=== PATIENT | female | born 1990 | race Caucasian/White ===

== ENCOUNTER 2025-01-05 15:50 | Inpatient (IN) ==
--- NOTE | 2025-01-05 16:53 | History & Physical Report ---
Date of Service January 05, 2025 Assessment & Plan (1) resulting from in vitro fertilization, antepartum: Plan: Admit to L&D, EFM/toco. Labs. History of Present Illness Chief Complaint: leaking fluid Primary Care Provider: NO PCP 34yo @ 40 0/7, started leaking fluid early this afternoon. + movement, no vaginal bleeding, some contractions IVF . Allergies Allergy/AdvReac Type Severity Reaction Status Date / Time No Known Allergies Allergy Verified 12/31/24 11:24 Home Medications Medication Instructions Recorded Confirmed Type PNV no.[id number] 1 tab PO DAILY 07/03/24 12/31/24 History [ Gummies] Patient History Medical History (Updated 01/05/25 @ 16:11 by Lily Curiel RN) Infertility, female Uterine polyp Varicella vaccination Surgical History Status post surgery uterine polypectomy Family History Denies family history of Ovarian cancer Prostate cancer Breast cancer Colorectal cancer Social History (Updated 07/03/24 @ 10:53 by Shelia Cota) Smoking Status: Never smoker Do You Dip or Chew Tobacco: No; Hx Alcohol Use: No Hx Substance Use: No Preferred Language: Uzbek Communication Ability: Effective Mail Handler Equipment Operator Required: No Beliefs That Will Affect Care: None marital status: marital status details: KENNY Camejo (31) [phone] Current Living Situation: Spouse Current Living Situation Comment: lives with spouse, dog, cat-spouse changing litter current occupational status: employed 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 Neg valsalva. Constitutional: WD/WN, vitals as above Respiratory: normal respiratory effort, lungs clear to auscultation no respiratory distress Cardiovascular: Rate/Rhythm: regular rate and regular rhythm Gastrointestinal (Abdomen): Inspection/Auscultation: abdomen normal to inspection Percussion/Palpation: abdomen soft; abdomen nontender Gravid. No s/s chorio or abruption. Skin: no rashes, warm and dry Psychiatric: A+Ox3, euthymic affect Results & Data Vital Signs (Past 12 Hours) Vital Signs Temp Pulse Resp BP 01/05/25 16:10 36.6 C 20 01/05/25 16:06 72 129/71 01/05/25 16:05 20 01/05/25 16:05 36.6 C 20 Coding Level of Care Code None Diagnoses resulting from in vitro fertilization, antepartum O09.819
[2025-01-05] MEDS ORDERED: LIDOCAINE 1% LOCAL 20 ML VIAL INFIL PRN (17:02)
[2025-01-05] MEDS ORDERED: OXYTOCIN 30 UNITS/NSS 30 UNITS/500 ML BAG IV PRN (17:02)
[2025-01-05 17:36] LABS: Hematocrit (blood only) 36.8 % (37.0-47.0); Mean Corpuscular Hemoglobin 32.6 pg (25.0-34.0); Mean Corpuscular Hgb Conc 35.3 g/dL (32.0-36.0); Mean Corpuscular Volume 92.2 fL (80.0-100.0); Mean Platelet Volume 12.1 fL (9.4-12.4); Platelet Count 174 K/uL (130-400); RDW Coefficient of Variation 12.2 % (11.5-14.5); RDW Standard Deviation 41.2 fL (36.4-46.3); Red Blood Count 3.99 M/uL (4.20-5.40); White Blood Count 9.98 K/ul (4.8-10.8)
[2025-01-05] MEDS: LACTATED RINGER'S 1,000 ML IV PRN (20:15)
[2025-01-05] MEDS: OXYTOCIN 30 UNITS/NSS 30 UNITS/500 ML BAG IV PRN (20:16)
--- NOTE | 2025-01-05 22:16 | Labor Progress Brief Note ---
Date of Service January 05, 2025 Subjective Pitocin started. FHT Cat 1 [place] Q 2 Continue augmentation of labor. Assessment & Plan Admission and Anticipated Discharge Date Admission Date: January 05, 2025 Results & Data Vital Signs (Past 12 Hours) Vital Signs Temp Pulse Resp BP O2 Del Method 01/05/25 21:25 77 01/05/25 21:25 124/68 01/05/25 20:49 16 01/05/25 20:49 37.0 C 16 01/05/25 20:14 79 01/05/25 20:14 128/71 01/05/25 19:16 Room Air 01/05/25 19:06 18 01/05/25 19:06 37.0 C 18 01/05/25 19:06 88 01/05/25 19:06 131/74 01/05/25 16:10 36.6 C 20 01/05/25 16:06 72 129/71 01/05/25 16:05 20 01/05/25 16:05 36.6 C 20 Coding Level of Care Code None
[2025-01-05] MEDS ORDERED: ROPIVACAINE 0.5% PF 5 MG/ML 20 ML VIAL EPI PRN (23:33)
[2025-01-05] MEDS ORDERED: diphenhydrAMINE 50 MG/ML VIAL IV PRN (23:33)
[2025-01-05] MEDS ORDERED: ePHEDrine sulfate 50 MG/ML AMP IV PRN (23:33)
[2025-01-05] MEDS ORDERED: NALOXONE HCL 0.4 MG/1 ML VIAL/CARP IV PRN (23:33)
[2025-01-05] MEDS ORDERED: NALOXONE HCL 1 MG in SODIUM CHLORIDE 0.9% 1,000 ML IV PRN (23:33)
[2025-01-05] MEDS ORDERED: NALBUPHINE HCL INJ 10 MG/ML AMP IV PRN (23:33)
[2025-01-05] MEDS ORDERED: BUPIVACAINE 0.25% PF 30 ML VIAL EPI PRN (23:33)
[2025-01-05] MEDS ORDERED: fentaNYL citrate PF 100 MCG/2 ML VIAL EPI PRN (23:33)
[2025-01-05] MEDS ORDERED: SODIUM CHLORIDE 0.9% PF INJ 10 ML VIAL EPI PRN (23:33)
[2025-01-05] MEDS ORDERED: LIDOCAINE 2% MPF LOCAL 5 ML VIAL EPI PRN (23:33)
--- NOTE | 2025-01-05 23:35 | Anesthesiology Consultation ---
Date of Service January 05, 2025 Assessment & Plan (1) Encounter for pre-operative examination: Chart Review Chart Review: Patient NOT seen in Pre Admission Testing and Acceptable Risk for Labor Epidural Consults Requested none History Height/Weight Height: 5 ft 3 in Weight: 84.822 kg Allergies Allergy/AdvReac Type Severity Reaction Status Date / Time No Known Allergies Allergy Verified 12/31/24 11:24 Medications Home Medications Medication Instructions Recorded Confirmed Last Taken PNV no.[id number] 1 tab PO DAILY 07/03/24 12/31/24 01/04/25 21:00 [ Gummies] Active Medications Generic Name Dose Route Start Last Admin Trade Name Freq PRN Reason Stop Dose Admin Lactated Ringer's 1,000 mls @ 125 mls/hr 01/05/25 17:02 01/05/25 23:15 Lr IV 01/06/25 17:01 999 mls/hr .Q8H PRN Infusion L&D Protocol Protocol Oxytocin 30 units in 500 mls @ 9 mls/hr 01/05/25 17:02 01/05/25 22:46 Pitocin 30 Units/Nss IV 01/07/25 17:01 0.54 units/hr .Q24H PRN 9 mls/hr Labor Induction/Augmentation Titration Protocol 0.54 UNITS/HR Past Medical History Medical History (Updated 01/05/25 @ 23:35 by Alfredito Leblanc MD) Encounter for pre-operative examination Infertility, female Uterine polyp Varicella vaccination Exercise / Class Metabolic Activity II 4-5 Yardwork/Stairs/Walk up hill Past Family History Family History Denies family history of Ovarian cancer Prostate cancer Breast cancer Colorectal cancer Past Surgical History Surgical History Status post surgery uterine polypectomy Past Anesthesia History No Hx of Anesthesia Complications and No Family Hx of Anesthesia Complications Social History Smoking Status: Never smoker Do You Dip or Chew Tobacco: No Hx Alcohol Use: No Hx Substance Use: No Physical Exam Vital Signs Last Vital Signs Temp 37.0 C 01/05/25 22:45 Pulse 81 01/05/25 23:54 Resp 16 01/05/25 22:45 BP 123/76 01/05/25 23:54 Pulse Ox 94 01/05/25 23:51 O2 Del Method Room Air 01/05/25 19:16 Testing Laboratory Results 01/05/25 17:17
[2025-01-05] MEDS: LIDOCAINE 2%/EPINEPHRINE 1:200,000 20 ML PF ONE (23:57)
[2025-01-05] MEDS: fentaNYL citrate PF 100 MCG/2 ML VIAL ONE (23:59)
[2025-01-06] MEDS: BUPIVACAINE 0.25% PF 30 ML VIAL ONE
[2025-01-06] MEDS: fentANYL 2 MCG/ML BUPIVacaine 0.125%-NSS 100ML BAG ONE (00:02)
[2025-01-06] MEDS: SODIUM CHLORIDE 0.9% PF INJ 10 ML VIAL ONE (00:38)
[2025-01-06] MEDS ORDERED: NURSING L&D Epidural Breakthrough Pain Update ONE (03:36)
[2025-01-06] MEDS ORDERED: LIDOCAINE 2%/EPINEPHRINE 1:200,000 20 ML PF ONE (04:00)
[2025-01-06] MEDS ORDERED: ROPIVACAINE 0.5% 5 MG/ML 30 ML VIAL ONE (04:00)
--- NOTE | 2025-01-06 04:17 | Anesthesia Procedure Note ---
Date of Service January 06, 2025 Anesthesia Epidural Re-Dose Vital Signs Temp Pulse Resp BP Pulse Ox O2 Del Method 37.1 C 76 16 111/57 L 97 Room Air 01/06/25 04:05 01/06/25 04:15 01/06/25 04:05 01/06/25 04:15 01/06/25 04:12 01/05/25 19:16 Notes Pain Intensity: 5 Dilatation (cm): 6.5 Effacement (%): 100 Called by nursing to evaluate epidural as the patient is having increased pain. The epidural was re-dosed with the following medications (all medications via epidural route) after negative aspiration of the epidural catheter for CSF/HEME. 8ml of 2% LIdocaine mixed with 4ml of 0.5% ropivicaine. After Epidural Re-Dose Mental Status: alert / awake / arousable Pain: improving with treatment Airway Patency, RR, SpO2: stable & adequate BP & HR: stable & adequate
[2025-01-06] MEDS: fentANYL 2 MCG/ML BUPIVacaine 0.125%-NSS 100ML BAG EPI PRN (06:12)
[2025-01-06] MEDS: ePHEDrine sulfate 50 MG/ML AMP ONE (06:24)
--- NOTE | 2025-01-06 10:34 | Labor Progress Brief Note ---
Date of Service January 06, 2025 Subjective feeling ctx pain, just repositioned Assessment & Plan (1) resulting from in vitro fertilization, antepartum: Plan: 34 yo G1 at 40 1/7 wga w/ srom VSS Fetus cat 2 w/ variables but reassuring w/ mod variability, improvement w/ positioning Labor - pit at 19 and ant lip, continue repositioning to help GBS neg epidural in place Admission and Anticipated Discharge Date Admission Date: January 05, 2025 Physical Exam Genitourinary: SVE 9.5/100/0 by rn just now after straight cath fetus cat 2 - 140/mod/+accel/intermit variables ctx qq3-5 Results & Data Vital Signs (Past 12 Hours) Vital Signs Temp Pulse Resp BP Pulse Ox 01/06/25 10:27 69 95 01/06/25 10:22 70 97 01/06/25 10:17 70 131/76 96 01/06/25 10:12 70 95 01/06/25 10:07 79 97 01/06/25 10:02 81 128/73 97 01/06/25 09:57 76 97 01/06/25 09:52 76 97 01/06/25 09:48 77 117/67 01/06/25 09:47 71 98 01/06/25 09:42 64 98 01/06/25 09:37 73 96 01/06/25 09:33 69 121/66 01/06/25 09:32 68 93 01/06/25 09:27 61 95 01/06/25 09:22 64 96 01/06/25 09:17 97 01/06/25 09:17 67 01/06/25 09:17 64 120/68 01/06/25 09:12 68 96 01/06/25 09:07 64 97 01/06/25 09:02 63 119/69 97 01/06/25 09:00 20 01/06/25 09:00 98.8 F 20 01/06/25 08:57 85 97 01/06/25 08:52 71 94 01/06/25 08:47 97 01/06/25 08:47 76 01/06/25 08:47 71 129/74 01/06/25 08:42 71 97 01/06/25 08:37 69 96 01/06/25 08:32 73 131/73 97 01/06/25 08:27 67 97 01/06/25 08:22 79 97 01/06/25 08:17 97 01/06/25 08:17 70 01/06/25 08:17 76 128/73 01/06/25 08:12 73 96 01/06/25 08:07 76 97 01/06/25 08:03 80 134/75 01/06/25 08:02 76 129/73 97 01/06/25 07:57 75 95 01/06/25 07:52 72 96 01/06/25 07:48 77 128/72 01/06/25 07:47 82 97 01/06/25 07:42 75 95 01/06/25 07:37 80 96 01/06/25 07:33 74 130/76 01/06/25 07:32 88 98 01/06/25 07:27 80 96 01/06/25 07:22 81 97 01/06/25 07:17 85 125/75 97 01/06/25 07:04 80 97 01/06/25 07:02 97.9 F 86 20 123/71 01/06/25 06:59 78 98 01/06/25 06:54 78 98 01/06/25 06:49 98 01/06/25 06:49 85 01/06/25 06:49 81 127/72 01/06/25 06:43 84 98 01/06/25 06:38 79 99 01/06/25 06:33 96 01/06/25 06:33 82 01/06/25 06:33 80 129/73 01/06/25 06:28 84 98 01/06/25 06:23 80 98 01/06/25 06:18 85 122/75 98 01/06/25 06:13 81 99 01/06/25 06:10 16 01/06/25 06:10 98.1 F 16 01/06/25 06:08 87 93 01/06/25 06:03 75 99 01/06/25 06:02 78 130/70 01/06/25 05:58 66 98 01/06/25 05:53 77 96 01/06/25 05:48 98 01/06/25 05:48 69 01/06/25 05:48 80 126/68 01/06/25 05:42 73 94 01/06/25 05:37 73 97 01/06/25 05:32 83 112/72 98 01/06/25 05:27 76 97 01/06/25 05:22 82 96 01/06/25 05:17 76 117/75 98 01/06/25 05:12 84 97 01/06/25 05:07 78 98 01/06/25 05:03 74 103/56 L 01/06/25 05:02 68 96 01/06/25 04:57 68 97 01/06/25 04:52 70 92 01/06/25 04:48 73 97/55 L 01/06/25 04:47 73 93 01/06/25 04:42 66 92 01/06/25 04:37 72 90 01/06/25 04:32 71 103/51 L 97 01/06/25 04:27 69 97 01/06/25 04:22 76 95 01/06/25 04:17 77 95 01/06/25 04:15 76 111/57 L 01/06/25 04:13 74 106/59 L 01/06/25 04:12 74 97 01/06/25 04:11 71 103/57 L 01/06/25 04:09 68 107/59 L 01/06/25 04:07 73 113/62 95 01/06/25 04:05 98.8 F 76 16 112/61 01/06/25 04:02 69 97 01/06/25 03:57 70 96 01/06/25 03:52 97 01/06/25 03:52 71 01/06/25 03:52 70 108/60 01/06/25 03:47 77 97 01/06/25 03:42 83 97 01/06/25 03:37 97 01/06/25 03:37 73 01/06/25 03:37 73 107/60 01/06/25 03:32 80 97 01/06/25 03:27 74 97 01/06/25 03:23 87 110/53 L 01/06/25 03:22 93 H 96 01/06/25 03:17 91 H 96 01/06/25 03:12 82 97 01/06/25 03:08 93 H 130/80 01/06/25 03:07 85 97 01/06/25 03:02 71 98 01/06/25 02:57 78 97 01/06/25 02:53 75 131/75 01/06/25 02:52 77 97 01/06/25 02:47 74 98 01/06/25 02:44 16 01/06/25 02:44 99.3 F 16 01/06/25 02:42 94 H 98 01/06/25 02:37 77 97 01/06/25 02:36 77 122/71 01/06/25 02:32 73 97 01/06/25 02:27 87 96 01/06/25 02:22 69 97 01/06/25 02:21 73 116/61 01/06/25 02:17 74 95 01/06/25 02:12 79 98 01/06/25 02:07 79 114/66 97 01/06/25 02:02 76 96 01/06/25 01:57 83 96 01/06/25 01:52 97 01/06/25 01:52 80 01/06/25 01:52 77 124/72 01/06/25 01:46 74 96 01/06/25 01:41 77 95 01/06/25 01:36 73 118/65 96 01/06/25 01:31 71 95 01/06/25 01:26 71 96 01/06/25 01:21 96 01/06/25 01:21 73 01/06/25 01:21 77 123/68 01/06/25 01:16 71 97 01/06/25 01:11 77 98 01/06/25 01:07 78 127/65 01/06/25 01:06 90 98 01/06/25 01:01 79 95 01/06/25 00:56 77 97 01/06/25 00:51 81 98 01/06/25 00:49 75 121/66 01/06/25 00:46 75 97 01/06/25 00:44 79 127/64 01/06/25 00:41 75 97 01/06/25 00:40 73 124/62 01/06/25 00:36 82 97 01/06/25 00:34 82 127/71 01/06/25 00:31 83 96 01/06/25 00:29 80 129/63 01/06/25 00:27 83 130/68 01/06/25 00:26 81 96 01/06/25 00:25 99.0 F 86 16 128/67 01/06/25 00:23 78 132/65 01/06/25 00:21 88 126/61 95 01/06/25 00:19 82 128/60 01/06/25 00:17 77 127/62 01/06/25 00:16 81 93 01/06/25 00:15 81 132/67 87 L 01/06/25 00:13 79 133/63 01/06/25 00:11 94 01/06/25 00:11 76 01/06/25 00:11 81 131/64 01/06/25 00:09 72 126/63 88 L 01/06/25 00:07 73 125/64 01/06/25 00:06 73 93 01/06/25 00:05 75 124/60 01/06/25 00:03 71 127/72 01/06/25 00:01 95 01/06/25 00:01 81 01/06/25 00:01 77 123/69 01/05/25 23:59 81 01/05/25 23:59 128/75 01/05/25 23:57 80 01/05/25 23:57 124/75 01/05/25 23:56 96 01/05/25 23:56 81 01/05/25 23:54 81 01/05/25 23:54 123/76 01/05/25 23:51 94 01/05/25 23:51 74 01/05/25 23:46 94 01/05/25 23:46 77 01/05/25 23:41 95 01/05/25 23:41 97 H 01/05/25 23:36 94 01/05/25 23:36 83 01/05/25 23:31 97 01/05/25 23:31 76 01/05/25 22:45 16 01/05/25 22:45 98.6 F 16 01/05/25 22:45 83 01/05/25 22:45 121/71 Coding Level of Care Code None Diagnoses resulting from in vitro fertilization, antepartum O09.819
--- NOTE | 2025-01-06 11:59 | Labor Progress Brief Note ---
Date of Service January 06, 2025 Subjective started pushing Assessment & Plan (1) resulting from in vitro fertilization, antepartum: Plan: 34 yo G1 at 40 1/7 wga w/ srom VSS Fetus cat 2 w/ variables but reassuring w/ mod variability, improvement b/w pushing and pushing effectively, just started. Continue pushing Admission and Anticipated Discharge Date Admission Date: January 05, 2025 Physical Exam Genitourinary: fetus cat 2 - 140/mod/intermit variables with pushing that recover after ctx ctx qq3-5 Results & Data Vital Signs (Past 12 Hours) Vital Signs Temp Pulse Resp BP Pulse Ox 01/06/25 11:52 86 97 01/06/25 11:49 97 H 131/80 01/06/25 11:47 73 98 01/06/25 11:42 70 98 01/06/25 11:37 73 99 01/06/25 11:34 83 125/77 01/06/25 11:32 72 99 01/06/25 11:27 66 98 01/06/25 11:22 63 98 01/06/25 11:19 65 139/91 01/06/25 11:17 71 98 01/06/25 11:12 67 99 01/06/25 11:07 67 98 01/06/25 11:02 66 108/62 97 01/06/25 10:57 67 98 01/06/25 10:52 80 98 01/06/25 10:50 98.2 F 01/06/25 10:49 77 117/87 01/06/25 10:47 66 97 01/06/25 10:42 73 98 01/06/25 10:37 69 97 01/06/25 10:33 74 120/79 01/06/25 10:32 73 97 01/06/25 10:27 69 95 01/06/25 10:22 70 97 01/06/25 10:17 70 131/76 96 01/06/25 10:12 70 95 01/06/25 10:07 79 97 01/06/25 10:02 81 128/73 97 01/06/25 09:57 76 97 01/06/25 09:52 76 97 01/06/25 09:48 77 117/67 01/06/25 09:47 71 98 01/06/25 09:42 64 98 01/06/25 09:37 73 96 01/06/25 09:33 69 121/66 01/06/25 09:32 68 93 01/06/25 09:27 61 95 01/06/25 09:22 64 96 01/06/25 09:17 97 01/06/25 09:17 67 01/06/25 09:17 64 120/68 01/06/25 09:12 68 96 01/06/25 09:07 64 97 01/06/25 09:02 63 119/69 97 01/06/25 09:00 20 01/06/25 09:00 98.8 F 20 01/06/25 08:57 85 97 01/06/25 08:52 71 94 01/06/25 08:47 97 01/06/25 08:47 76 01/06/25 08:47 71 129/74 01/06/25 08:42 71 97 01/06/25 08:37 69 96 01/06/25 08:32 73 131/73 97 01/06/25 08:27 67 97 01/06/25 08:22 79 97 01/06/25 08:17 97 01/06/25 08:17 70 01/06/25 08:17 76 128/73 01/06/25 08:12 73 96 01/06/25 08:07 76 97 01/06/25 08:03 80 134/75 01/06/25 08:02 76 129/73 97 01/06/25 07:57 75 95 01/06/25 07:52 72 96 01/06/25 07:48 77 128/72 01/06/25 07:47 82 97 01/06/25 07:42 75 95 01/06/25 07:37 80 96 01/06/25 07:33 74 130/76 01/06/25 07:32 88 98 01/06/25 07:27 80 96 01/06/25 07:22 81 97 01/06/25 07:17 85 125/75 97 01/06/25 07:04 80 97 01/06/25 07:02 97.9 F 86 20 123/71 01/06/25 06:59 78 98 01/06/25 06:54 78 98 01/06/25 06:49 98 01/06/25 06:49 85 01/06/25 06:49 81 127/72 01/06/25 06:43 84 98 01/06/25 06:38 79 99 01/06/25 06:33 96 01/06/25 06:33 82 01/06/25 06:33 80 129/73 01/06/25 06:28 84 98 01/06/25 06:23 80 98 01/06/25 06:18 85 122/75 98 01/06/25 06:13 81 99 01/06/25 06:10 16 01/06/25 06:10 98.1 F 16 01/06/25 06:08 87 93 01/06/25 06:03 75 99 01/06/25 06:02 78 130/70 01/06/25 05:58 66 98 01/06/25 05:53 77 96 01/06/25 05:48 98 01/06/25 05:48 69 01/06/25 05:48 80 126/68 01/06/25 05:42 73 94 01/06/25 05:37 73 97 01/06/25 05:32 83 112/72 98 01/06/25 05:27 76 97 01/06/25 05:22 82 96 01/06/25 05:17 76 117/75 98 01/06/25 05:12 84 97 01/06/25 05:07 78 98 01/06/25 05:03 74 103/56 L 01/06/25 05:02 68 96 01/06/25 04:57 68 97 01/06/25 04:52 70 92 01/06/25 04:48 73 97/55 L 01/06/25 04:47 73 93 01/06/25 04:42 66 92 01/06/25 04:37 72 90 01/06/25 04:32 71 103/51 L 97 01/06/25 04:27 69 97 01/06/25 04:22 76 95 01/06/25 04:17 77 95 01/06/25 04:15 76 111/57 L 01/06/25 04:13 74 106/59 L 01/06/25 04:12 74 97 01/06/25 04:11 71 103/57 L 01/06/25 04:09 68 107/59 L 01/06/25 04:07 73 113/62 95 01/06/25 04:05 98.8 F 76 16 112/61 01/06/25 04:02 69 97 01/06/25 03:57 70 96 01/06/25 03:52 97 01/06/25 03:52 71 01/06/25 03:52 70 108/60 01/06/25 03:47 77 97 01/06/25 03:42 83 97 01/06/25 03:37 97 01/06/25 03:37 73 01/06/25 03:37 73 107/60 01/06/25 03:32 80 97 01/06/25 03:27 74 97 01/06/25 03:23 87 110/53 L 01/06/25 03:22 93 H 96 01/06/25 03:17 91 H 96 01/06/25 03:12 82 97 01/06/25 03:08 93 H 130/80 01/06/25 03:07 85 97 01/06/25 03:02 71 98 01/06/25 02:57 78 97 01/06/25 02:53 75 131/75 01/06/25 02:52 77 97 01/06/25 02:47 74 98 01/06/25 02:44 16 01/06/25 02:44 99.3 F 16 01/06/25 02:42 94 H 98 01/06/25 02:37 77 97 01/06/25 02:36 77 122/71 01/06/25 02:32 73 97 01/06/25 02:27 87 96 01/06/25 02:22 69 97 01/06/25 02:21 73 116/61 01/06/25 02:17 74 95 01/06/25 02:12 79 98 01/06/25 02:07 79 114/66 97 01/06/25 02:02 76 96 01/06/25 01:57 83 96 01/06/25 01:52 97 01/06/25 01:52 80 01/06/25 01:52 77 124/72 01/06/25 01:46 74 96 01/06/25 01:41 77 95 01/06/25 01:36 73 118/65 96 01/06/25 01:31 71 95 01/06/25 01:26 71 96 01/06/25 01:21 96 01/06/25 01:21 73 04/28/25 01:21 77 123/68 01/06/25 01:16 71 97 01/06/25 01:11 77 98 01/06/25 01:07 78 127/65 01/06/25 01:06 90 98 01/06/25 01:01 79 95 01/06/25 00:56 77 97 01/06/25 00:51 81 98 01/06/25 00:49 75 121/66 01/06/25 00:46 75 97 01/06/25 00:44 79 127/64 01/06/25 00:41 75 97 01/06/25 00:40 73 124/62 01/06/25 00:36 82 97 01/06/25 00:34 82 127/71 01/06/25 00:31 83 96 01/06/25 00:29 80 129/63 01/06/25 00:27 83 130/68 01/06/25 00:26 81 96 01/06/25 00:25 99.0 F 86 16 128/67 01/06/25 00:23 78 132/65 01/06/25 00:21 88 126/61 95 01/06/25 00:19 82 128/60 01/06/25 00:17 77 127/62 01/06/25 00:16 81 93 01/06/25 00:15 81 132/67 87 L 01/06/25 00:13 79 133/63 01/06/25 00:11 94 01/06/25 00:11 76 01/06/25 00:11 81 131/64 01/06/25 00:09 72 126/63 88 L 01/06/25 00:07 73 125/64 01/06/25 00:06 73 93 01/06/25 00:05 75 124/60 01/06/25 00:03 71 127/72 01/06/25 00:01 95 01/06/25 00:01 81 01/06/25 00:01 77 123/69 01/05/25 23:59 81 01/05/25 23:59 128/75 Coding Level of Care Code None Diagnoses resulting from in vitro fertilization, antepartum O09.819
--- NOTE | 2025-01-06 14:42 | Delivery Summary ---
Vaginal Delivery Summary Date of Service January 06, 2025 Vaginal Delivery Summary and 2nd Degree LAC Patient had been monitored by the team over the evening and day in labor as I was covering labor and delivery she was pushing she had an epidural after delivery of the head and occiput anterior position there was no meconium and no nuchal cord gentle traction on the baby resulted in easy delivery of a live male infant baby did require some resuscitation within the room we did wait for placenta but it became retained manual removal was performed using extraction by gloved hand and gowned arm felt the placenta was fully removed second-degree tear repaired with 3-0 Vicryl sponge and instrument counts are correct QBL as per nursing record we will give 2 doses of Ancef afterwards for the manual extraction [facility] Vaginal Delivery Charge Delivery Type Details: and 2nd Degree LAC
[2025-01-06] MEDS: BUPIVACAINE 0.25% PF 30 ML VIAL EPI STA (14:44)
[2025-01-06] MEDS: fentaNYL citrate PF 100 MCG/2 ML VIAL EPI STA (14:44)
[2025-01-06] MEDS ORDERED: ceFAZolin 1000MG 1,000 MG/7.5 ML SYR IV SCH (14:45)
[2025-01-06] MEDS: SODIUM CHLORIDE 0.9% PF INJ 10 ML VIAL EPI STA (14:45)
[2025-01-06] MEDS: LIDOCAINE 2%/EPINEPHRINE 1:200,000 20 ML PF EPI STA (14:45)
[2025-01-06] MEDS ORDERED: BENZOCAINE 20% SPRY 85 APPLN/85 GM CAN EXT PRN (14:55)
[2025-01-06] MEDS ORDERED: HYDROCORTISONE ACETATE 25 MG SUPP PR PRN (14:55)
[2025-01-06] MEDS ORDERED: bisacodyL 10 MG SUPP PR PRN (14:55)
[2025-01-06] MEDS ORDERED: OXYTOCIN 30 UNITS/NSS 30 UNITS/500 ML BAG IV PRN (14:55)
[2025-01-06 15:03] LABS: Base Excess Cord Venous Blood -15.9 mEq/L (-7.7-1.9); Cord Venous Blood HCO3 16 mmol/L (18.4-26.8); Cord Venous Blood PCO2 60 mmHg (30.4-57.2); Cord Venous Blood PO2 < 20 mmHg (14.1-43.3); Cord Venous Blood pH 7.03 (7.20-7.44); O2 Saturation Cord Venous Bld < 60.0 % (<68)
[2025-01-06] MEDS: DIPHTHER/TETAN/PERTUS Vaccine (Tdap, Adol/Adult) 0.5mL IM ONE (15:03)
[2025-01-06 15:04] LABS: CO2 Cord Arterial Blood 79 mmHg (39.1-73.5); PO2 Cord Arterial Blood 22 mmHg (4.1-31.7); pH Cord Arterial Blood < 7.00 (7.1-7.38)
[2025-01-06] MEDS: ceFAZolin 2000MG 2,000 MG/15 ML SYR IV SCH (15:08)
--- NOTE | 2025-01-06 15:19 | Anesthesia Procedure Note ---
Date of Service January 06, 2025 Anesthesia Post Epidural Note Vital Signs Vital Signs: Temp Pulse Resp BP Pulse Ox O2 Del Method 36.6 C 75 20 126/78 85 L Room Air 01/06/25 13:47 01/06/25 15:11 01/06/25 09:00 01/06/25 15:11 01/06/25 14:01 01/05/25 19:16 Pain Intensity Abdomen: Pain Intensity: 5 Notes Mental Status: alert / awake / arousable and participated in evaluation Nausea / Vomiting: adequately controlled Pain: adequately controlled Airway Patency, RR, SpO2: stable & adequate BP & HR: stable & adequate Hydration State: stable & adequate Neuraxial Anesthesia: was administered and sensory block is resolving Anesthetic Complications: no major complications apparent Epidural: Removed without complications and With tip intact
[2025-01-06] MEDS: IBUPROFEN 600 MG TAB PO PRN (15:25)
[2025-01-06] MEDS: ACETAMINOPHEN 325 MG TAB PO PRN (17:10)
[2025-01-06] MEDS: DOCUSATE SODIUM 100 MG CAP PO SCH (20:02)
[2025-01-07 06:08] LABS: Hematocrit (blood only) 31.5 % (37.0-47.0); Hemoglobin 10.8 g/dl (12.0-16.0); Mean Corpuscular Hemoglobin 31.7 pg (25.0-34.0); Mean Corpuscular Hgb Conc 34.3 g/dL (32.0-36.0); Mean Corpuscular Volume 92.4 fL (80.0-100.0); Mean Platelet Volume 12.2 fL (9.4-12.4); Platelet Count 164 K/uL (130-400); RDW Coefficient of Variation 12.7 % (11.5-14.5); RDW Standard Deviation 42.8 fL (36.4-46.3); Red Blood Count 3.41 M/uL (4.20-5.40); White Blood Count 12.55 K/ul (4.8-10.8)
--- NOTE | 2025-01-07 07:55 | Obstetrical Progress Note ---
Date of Service January 07, 2025 Assessment & Plan (1) Encounter for care and examination after delivery: 34 yo PP1 from c/b manual extraction, doing well -Meeting all pp milestones. Notes more ankle tightness in L than R but appear symmetric to me and calves appear wnl and symmetric bilaterally. Encourage ambulation today but reviewed vte s/s to let us know for -O+/rubella immune/ -f/u 6 weeks for appt. Continue routine care Subjective Ambulation: ambulating normally Voiding: no voiding problems Passing Gas:: Yes Diet Tolerance:: regular diet Lochia:: Small Feeding Type:: breast feeding Pain managed with medication Reporting more tightness in left ankle/foot than right but not above Review of Systems Denies fevers, chills, n/v, SAMAYOA, CP, SOB Physical Exam Constitutional WD/WN, vitals as above no acute distress Respiratory normal respiratory effort, lungs clear to auscultation Cardiovascular RRR, no murmur, no edema Gastrointestinal (Abdomen) Percussion/Palpation: abdomen soft; abdomen nontender fundus firm at umbilicus and NT Musculoskeletal BLE symmetric, nonerythematous, nontender Results & Data Vital Signs (Past 12 Hours) Vital Signs Temp Pulse Pulse Resp BP BP Pulse Ox 01/07/25 04:15 97.7 F 80 19 123/81 96 01/06/25 23:00 98.1 F 72 18 119/80 99 01/06/25 20:00 97.9 F 72 18 132/80 96 01/06/25 20:00 97.9 F 72 16 132/86 96 O2 Del Method 01/07/25 04:15 Room Air 01/06/25 23:00 01/06/25 20:00 01/06/25 20:00 Room Air
[2025-01-07] MEDS: PRENATAL VITAMIN 1 TAB PO SCH (09:26)
[2025-01-07 18:36] VITALS: O2SAT 97
[2025-01-07] MEDS: bisacodyL 5 MG TABEC PO SCH (22:10)
[2025-01-07 22:15] VITALS: TEMP 98.1
[2025-01-08 01:38] VITALS: RESP 18
[2025-01-08 06:41] LABS: Hematocrit (blood only) 31.3 % (37.0-47.0); Hemoglobin 10.6 g/dl (12.0-16.0)
--- NOTE | 2025-01-08 07:22 | Obstetrical Progress Note ---
Date of Service January 08, 2025 Assessment & Plan (1) Encounter for care and examination after delivery: Day 2 status post vaginal delivery. Patient doing well and stable for discharge. Subjective Ambulation: ambulating normally Voiding: no voiding problems Passing Gas:: Yes Diet Tolerance:: regular diet Lochia:: Moderate Physical Exam Constitutional WD/WN, vitals as above Respiratory normal respiratory effort; no respiratory distress and no labored breathing Cardiovascular Extremities: no calf tenderness Gastrointestinal (Abdomen) Inspection/Auscultation: abdomen normal to inspection; abdomen not distended Percussion/Palpation: abdomen soft; abdomen nontender, no guarding and abdomen not rigid Genitourinary OB Exam Abdomen: + fundal height Fundus: + firm and + relation to umbilicus (Below); not tender or not boggy Results & Data Vital Signs (Past 12 Hours) Vital Signs Temp Pulse Resp BP O2 Del Method 01/08/25 00:15 36.7 C 74 18 115/78 Room Air 01/07/25 21:30 36.7 C 77 16 121/81 Room Air
[2025-01-08 09:34] VITALS: BP 127/85; PULSE 72
== END 2025-01-08 13:30 | disposition home or self-care (01) | DRG 807 ==
LOC: OPB 15:50 → 4S1 15:56 → 4E2 01-06 18:02
DX: O70.1 Second degree perineal laceration during delivery; Z37.0 Single live birth; Z3A.40 40 weeks gestation of pregnancy; O09.813 Supervision of pregnancy resulting from assisted reproductive technology, third trimester